=== PATIENT | female | born 1970 | race Hispanic/Latino ===

== ENCOUNTER → 2018-03-22 | Outpatient (CLI) | payer OTHER ==
[~2018-03-22] MED LIST: IOPAMIDOL 370 MG/ML 200 ML INFUS..BTL INJ ONE; SODIUM CHLORIDE 0.9% 250ML 250 ML ONE
[2018-03-22 09:49] LABS: BLOOD UREA NITROGEN 11 mg/dL (7-26); BUN/CREATININE RATIO 17 (6-25); CREATININE, SERUM 0.64 mg/dL (0.57-1.11); EST GLOMERULAR FILTRATION RATE > 60 ML/MIN (60-)
--- NOTE | 2018-03-22 11:28 | Diagnostic Imaging Report ---
PROCEDURE: CT ABDOMEN \T\ PELVIS W/WO CONTRAST TECHNIQUE: The abdomen and pelvis were scanned utilizing a multidetector helical scanner from the diaphragm to the lesser trochanter before and after the IV administration of 100 cc Isovue 370 and the oral administration of water. Imaging was performed in the prone position per CT urogram protocol. COMPARISON: None. INDICATIONS: HEMATURIA FINDINGS: LOWER THORAX: Normal. HEPATOBILIARY: No focal hepatic lesions. No intrahepatic biliary ductal dilatation. The gallbladder has been removed. SPLEEN: No splenomegaly. Small splenule along the lower pole. PANCREAS: No focal masses or ductal dilatation. ADRENALS: No adrenal nodules. KIDNEYS/URETERS: Precontrast images show no renal, ureteral, or bladder calculi. No solid or cystic renal mass lesion with the exception of a subcentimeter hypoattenuating lesion in the interpolar right kidney which is too small to further characterize but likely to represent a small cyst. Excretory phase images show no filling defects within the upper collecting systems, ureters, or urinary bladder. PELVIC ORGANS/BLADDER: The urinary bladder is unremarkable. The uterus is anteflexed and appears normal. No adnexal mass. A probable dropped surgical clip lies in the rectouterine space. PERITONEUM / RETROPERITONEUM: No ascites or pneumoperitoneum. LYMPH NODES: No pelvic sidewall, retroperitoneal, or mesenteric lymphadenopathy. VESSELS: The evaluation of the vessels is limited secondary to phase of acquisition. The abdominal aorta is non-aneurysmal. GI TRACT: The large bowel shows no evidence of distention or wall thickening. The appendix is normal. The stomach is collapsed with prominent rugal folds. No small bowel dilatation to suggest obstruction. BONES AND SOFT TISSUES: No focal soft tissue abnormalities. No osseous destructive lesions. Mild degenerative disc changes and degenerative facet arthropathy of the lumbar spine. IMPRESSION: No urolithiasis or other CT urographic finding to explain the reported clinical history of hematuria. Dictated by: Zenon Armstrong M.D. on 03/22/2018 at 11:29 Electronically approved by: Zenon Armstrong M.D. on 03/22/2018 at 11:29
== END ==
LOC: CT 08:46
PROVIDERS: ATTEND Urology
DX: R31.21 Asymptomatic microscopic hematuria (principal)
CPT/HCPCS: 36415; 74178; 82565; 84520; 84702; J7050; Q9967

== ENCOUNTER → 2018-11-20 | Outpatient (CLI) | payer OTHER ==
--- NOTE | 2018-11-20 14:29 | Diagnostic Imaging Report ---
EXAM: Renal Ultrasound INDICATION: CYST OF KIDNEY COMPARISON: None TECHNIQUE: Transverse and longitudinal images of the kidneys and bladder were obtained. FINDINGS: Right Kidney: Length: 11.9 cm Appearance: Normal echogenicity. Collecting system: No hydronephrosis Stones: None Cyst/Mass: None Left Kidney: Length: 13.1 cm Appearance: Normal echogenicity. Collecting system: No hydronephrosis Stones: None Cyst/Mass: None Bladder: Normal. Increased echogenicity of the hepatic parenchyma suggestive of steatosis. IMPRESSION: Normal renal ultrasound exam. Signed by: Dr. Toney Olivas M.D. on 11/20/2018 2:26 PM
== END ==
LOC: US 11:16
PROVIDERS: ATTEND Urology
DX: N28.1 Cyst of kidney, acquired (principal)
CPT/HCPCS: 76770

== ENCOUNTER → 2020-09-19 | Outpatient (CLI) | payer OTHER | LOC: US 12:57 | PROVIDERS: ATTEND Urology | DX: N28.1 Cyst of kidney, acquired (principal) | CPT/HCPCS: 76770 ==